=== PATIENT | female | born 1935 | race Caucasian/White ===

== ENCOUNTER 2021-02-10 10:45 | Emergency (ER) | payer MEDICARE ==
--- NOTE | 2021-02-10 10:53 | EDM.PDOC ---
ED HPI GENERAL MEDICAL PROBLEM - General Chief Complaint: Head Injury Stated Complaint: MEDICAL [facility] Time Seen by Provider: 02/10/21 10:47 Source of Information: Reports: Patient, EMS, Old Records, RN History Limitations: Reports: No Limitations - History of Present Illness INITIAL COMMENTS - FREE TEXT/NARRATIVE: 85 yo female with dementia was being moved with a Ronni lift and she accidentally got dropped and hit the back of her head. There was no LOC. Sent via EMT's for eval. Onset: Today, Sudden Onset Date: 02/10/21 Duration: Minutes: Location: Reports: Head Quality: Reports: Dull Severity: Mild Improves with: Reports: None Worsens with: Reports: None Context: Reports: Trauma Associated Symptoms: Reports: No Other Symptoms Treatments PROMOTION SPECIALIST: Reports: Other (see below) (none) ED ROS GENERAL - Review of Systems Review Of Systems: Unable To Obtain Reason Not Obtained: due to severe dementia Constitutional: Reports: No Symptoms ED EXAM, HEAD INJURY - Physical Exam Exam: See Below Exam Limited By: No Limitations General Appearance: Alert, WD/WN, No Apparent Distress Head: Normocephalic, Scalp Abrasions (nickel sized abrasion at the occiput). No: Scalp Hematoma, Active Bleeding, Adkins's Sign, Raccoon Eyes Nexus Criteria: No: Evidence of Intoxication, Altered Level of Consciousness, Focal Neurological Deficit Eyes: Bilateral Eye: Normal Inspection, PERRL Ears: Normal External Exam, Normal Canal, Hearing Grossly Normal, Normal TMs Nose: Normal Inspection, No Blood. No: Clear Rhinorrhea Throat/Mouth: Normal Inspection, Normal Lips, Normal Oropharynx, Normal Voice, No Airway Compromise. No: Normal Teeth (edentulous) Neck: Non-Tender, Full Range of Motion, Normal Inspection. No: Tenderness Respiratory: No Respiratory Distress, Lungs Clear, Normal Breath Sounds, No Accessory Muscle Use Cardiovascular: Regular Rate, Rhythm, No Edema GI/Abdominal Exam: Soft, Non-Tender Back Exam: Normal Inspection, Other. 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 No: Oriented x 3 Skin: Normal Color, Warm/Dry, Other (small scalp abrasion) - Rebekah Coma Score Best Eye Response ([place]): (4) Open Spontaneously Best Verbal Response (Rebekah): (4) Confused Conversation Best Motor Response ([place]): (6) Obeys Commands [place] Total: 14 (this is her baseline) Departure - Departure Time of Disposition: 11:00 Disposition: Home, Self-Care 01 Condition: Good Clinical Impression: Abrasion of occiput Qualifiers: Encounter type: initial encounter Qualified Code(s): S00.01XA - Abrasion of scalp, initial encounter - Discharge Information *PRESCRIPTION DRUG MONITORING PROGRAM REVIEWED*: Not Applicable *COPY OF PRESCRIPTION DRUG MONITORING REPORT IN PATIENT LORIE: Not Applicable Instructions: Abrasion, [id number] Referrals: PCP,None [Primary Care Provider] - Additional Instructions: Apply Bacitracin ointment to the scalp abrasion a couple times a day. Recheck for recurrent vomiting, unequal pupils, or decreased level of consciousness.
[2021-02-10] MEDS ORDERED: Bacitracin Oint 1 GM U/D Packet TOP ONE (10:56)
== END 2021-02-10 11:37 | disposition home or self-care (01) ==
LOC: JP.ED 10:45
DX: S00.01XA Abrasion of scalp, initial encounter (principal); F03.90 Unspecified dementia, unspecified severity, without behavioral disturbance, psychotic disturbance, mood disturbance, and anxiety; W20.8XXA Other cause of strike by thrown, projected or falling object, initial encounter
CPT/HCPCS: 99283

== ENCOUNTER 2023-07-10 04:57 | Inpatient (IN) | payer MEDICAID, MEDICARE ==
[2023-07-10] MEDS: HYDROmorphone 0.5 MG/0.5 ML Syringe IVPUSH ONE (05:10)
[2023-07-10] MEDS: Albuterol/Ipratropium 3.0-0.5 MG/3 ML Neb Soln NEB ONE (05:10)
[2023-07-10] MEDS: Sodium Chloride 0.9% 1,000 ML IV SCH ×2 (05:11→11:49)
[2023-07-10] MEDS: Sodium Chloride 0.9% 10 ML Syringe FLUSH PRN (05:11)
[2023-07-10] MEDS: cefTRIAXone 2 GM in Sodium Chloride 0.9% 50 ML IV ONE (05:19)
[2023-07-10] MEDS: LORazepam 2 MG/ML SDV IVPUSH ONE (05:33)
[2023-07-10 05:49] LABS: BASE EXCESS ARTERIAL 0.6 mm/L; BICARBONATE,ARTERIAL 25.4 mmol/L (22.0-26.0); CARBOXYHEMOGLOBIN 1.9 % (0.0-1.6); METHEMOGLOBIN 0.7 %; O2 SATURATION ARTERIAL 97.8 % (95.0-98.0); OXYHEMOGLOBIN 95.3 %; PCO2 ARTERIAL 43.9 mmHg (35.0-42.0); PO2 ARTERIAL 97.6 mmHg (75.0-100.0)
[2023-07-10 05:51] LABS: BASOPHILS PERCENT AUTO 0.2 % (0.1-1.3); HEMATOCRIT 34.2 % (34.3-46.0); HEMOGLOBIN 11.6 g/dL (11.2-15.5); IMMATURE GRAN ABSOLUTE AUTO 0.07 K/uL (0.00-0.23); IMMATURE GRAN PERCENT AUTO 0.8 % (0.0-0.7); LYMPHOCYTES ABSOLUTE AUTO 0.85 K/uL (0.8-3.3); LYMPHOCYTES PERCENT AUTO 9.7 % (11.4-47.7); MEAN CORPUSCULAR HEMOGLOBIN 31.4 pg (31.6-35.5); MEAN CORPUSCULAR HGB CONC 33.9 g/dL (31.6-35.5); MEAN CORPUSCULAR VOLUME 92.4 fL (81.4-99.0); MONOCYTES ABSOLUTE AUTO 0.49 K/uL (0.20-0.90); MONOCYTES PERCENT AUTO 5.6 % (3.3-12.6); NEUTROPHILS ABSOLUTE AUTO 7.35 K/uL (1.0-7.6); NEUTROPHILS PERCENT AUTO 83.7 % (40.0-78.1); PLATELET COUNT,PLT 151 K/uL (130-375); WHITE BLOOD CELL COUNT,WBC 8.8 K/uL (3.2-11.0)
[2023-07-10 06:08] LABS: CORONAVIRUS COVID-19 NAA NEGATIVE (NEGATIVE); INFLUENZA A NAA NEGATIVE (NEGATIVE); INFLUENZA B NAA NEGATIVE (NEGATIVE); RESPIRATORY SYNCYTIAL VIR NAA NEGATIVE (NEGATIVE)
[2023-07-10 06:14] LABS: BASOPHILS ABSOLUTE AUTO 0.02 K/uL (0.00-0.10)
[2023-07-10 06:17] LABS: A/G RATIO 0.7 (1.2-2.2); ALANINE AMINOTRANSFERASE,ALT 23 U/L (12-78); ALBUMIN 2.9 g/dL (3.4-5.0); ALKALINE PHOSPHATASE 44 U/L (46-116); ASPARTATE AMNIOTRANSFERASE,AST 22 U/L (15-37); BILIRUBIN TOTAL 0.3 mg/dL (0.2-1.0); BLOOD UREA NITROGEN,BUN 25 mg/dL (7-18); CALCIUM 9.1 mg/dL (8.5-10.1); CARBON DIOXIDE,CO2 27 mmol/L (21-32); CHLORIDE,CL 101 mmol/L (100-108); CREATININE 1.4 mg/dL (0.6-1.0); EST CRCL DRUG DOSING (CG) 23.52 mL/min; ESTIMATED GFR 36 mL/min (>60); GLUCOSE RANDOM 142 mg/dL (74-106); SODIUM,NA 138 mmol/L (140-148); TROPONIN I HIGH SENSITIVITY 54.1 pg/mL (<=60.3)
[2023-07-10 06:41] LABS: APPEARANCE,URINE SLIGHTLY CLOUDY (CLEAR); BILIRUBIN,URINE NEGATIVE (NEGATIVE); COLOR,URINE YELLOW (YELLOW); GLUCOSE,URINE NEGATIVE (NEGATIVE); KETONES,URINE NEGATIVE (NEGATIVE); LEUKOCYTE ESTERASE,URINE SMALL (NEGATIVE); NITRITE,URINE POSITIVE (NEGATIVE); OCCULT BLOOD,URINE MODERATE (NEGATIVE); PROTEIN,URINE 100 mg/dL (NEGATIVE); UROBILINOGEN,URINE 0.2 EU/dL (0.2-1.0)
[2023-07-10] MEDS: Furosemide 40 MG/4 ML VIAL IVPUSH ONE (06:43)
[2023-07-10 06:50] LABS: BACTERIA,URINE MANY; EPITHELIAL CELLS,URINE MODERATE; WBC,URINE >100 (0-5)
[2023-07-10 06:51] LABS: AMORPHOUS SEDIMENT,URINE NOT SEEN; MUCUS,URINE NOT SEEN
[2023-07-10] MEDS: Sodium Chloride 0.9% 10 ML Syringe FLUSH ONE (06:55)
[2023-07-10] MEDS: Iopamidol 612 MG/ML 100 ML Bottle IV PRN (06:55)
[2023-07-10] MEDS: Sodium Chloride 0.9% 80 ML IV SCH (06:55)
[2023-07-10] MEDS ORDERED: Ondansetron 4 MG Tab.DIS PO PRN (11:32)
[2023-07-10] MEDS ORDERED: Magnesium Hydroxide 400 MG/5 ML Susp 30 ML Cup PO PRN (11:32)
[2023-07-10] MEDS ORDERED: Sennosides/Docusate Sodium 50-8.6 MG Tab PO PRN (11:32)
[2023-07-10] MEDS ORDERED: Acetaminophen 325 MG Tab PO PRN (11:32)
[2023-07-10] MEDS ORDERED: Ondansetron 4 MG/2 ML SDV IV PRN (11:32)
[2023-07-10] MEDS: Doxycycline 100 MG in Sodium Chloride 0.9% 100 ML IV SCH (12:41)
[2023-07-10] MEDS: Albuterol 0.083% 2.5 MG/3 ML Neb Soln NEB PRN (12:45)
[2023-07-10] MEDS: LORazepam 0.5 MG Tab PO PRN (14:15)
[2023-07-10] MEDS: Albuterol/Ipratropium 3.0-0.5 MG/3 ML Neb Soln NEB SCH (14:36)
[2023-07-10] MEDS: LORazepam 0.5 MG Tab PO SCH (20:31)
[2023-07-10] MEDS: Melatonin 3 MG Tab PO SCH (20:31)
[2023-07-10] MEDS: Lactobacillus Rhamnosus GG (Probiotic) Cap PO SCH (20:31)
[2023-07-10] MEDS: Donepezil 10 MG Tab PO SCH (20:31)
[2023-07-10] MEDS: Metoprolol Tartrate 50 MG Tab PO SCH (20:34)
[2023-07-10] MEDS: Budesonide 0.5 MG/2 ML Neb Susp NEB SCH (20:44)
[2023-07-11 05:08] LABS: HEMATOCRIT 31.4 % (34.3-46.0); HEMOGLOBIN 10.4 g/dL (11.2-15.5); MEAN CORPUSCULAR HEMOGLOBIN 31.3 pg (31.6-35.5); MEAN CORPUSCULAR HGB CONC 33.1 g/dL (31.6-35.5); MEAN CORPUSCULAR VOLUME 94.6 fL (81.4-99.0); RED BLOOD CELL COUNT 3.32 M/uL (3.77-5.24); WHITE BLOOD CELL COUNT,WBC 11.2 K/uL (3.2-11.0)
[2023-07-11 05:22] LABS: ANION GAP 10.2 mmol/L (5.0-14.0); CALCIUM 8.6 mg/dL (8.5-10.1); CREATININE 1.6 mg/dL (0.6-1.0); EST CRCL DRUG DOSING (CG) 20.58 mL/min; MAGNESIUM 1.8 mg/dL (1.8-2.4); POTASSIUM,K 4.1 mmol/L (3.6-5.2)
[2023-07-11] MEDS: Loratadine 10 MG Tab PO SCH (08:33)
[2023-07-11] MEDS: Sertraline 50 MG Tab PO SCH (08:33)
[2023-07-11] MEDS: predniSONE 5 MG Tab PO SCH (08:34)
[2023-07-11] MEDS: cefTRIAXone 1 GM in Sodium Chloride 0.9% 50 ML IV SCH (10:54)
[2023-07-11] MEDS: Morphine 10 MG/0.5 ML Oral Syringe PO PRN (12:12)
[2023-07-11] MEDS: LORazepam ORAL Concentrate 1MG/0.5ML U/D PO PRN (12:12)
[2023-07-11] MEDS: methylPREDNISolone Sodium Succinate 125 MG/2 ML SDV IVPUSH ONE (12:13)
[2023-07-11] MEDS: Sodium Chloride 0.9% 1,000 ML IV SCH (19:48)
[2023-07-11] MEDS: methylPREDNISolone Sodium Succinate 125 MG/2 ML SDV IVPUSH SCH (19:49)
[2023-07-12 05:02] LABS: C-REACTIVE PROTEIN 4.29 mg/dL (<0.50); CALCIUM 8.9 mg/dL (8.5-10.1); CREATININE 1.4 mg/dL (0.6-1.0); EST CRCL DRUG DOSING (CG) 23.52 mL/min; POTASSIUM,K 3.8 mmol/L (3.6-5.2)
[2023-07-12 05:08] LABS: ANION GAP 14.8 mmol/L (5.0-14.0)
[2023-07-12 07:31] LABS: HEMATOCRIT 32.1 % (34.3-46.0); HEMOGLOBIN 10.7 g/dL (11.2-15.5); MEAN CORPUSCULAR HEMOGLOBIN 31.3 pg (31.6-35.5); MEAN CORPUSCULAR HGB CONC 33.3 g/dL (31.6-35.5); MEAN CORPUSCULAR VOLUME 93.9 fL (81.4-99.0); RED BLOOD CELL COUNT 3.42 M/uL (3.77-5.24); WHITE BLOOD CELL COUNT,WBC 8.6 K/uL (3.2-11.0)
[2023-07-13 04:48] LABS: BASOPHILS PERCENT AUTO 0.1 % (0.1-1.3); HEMATOCRIT 33.5 % (34.3-46.0); IMMATURE GRAN ABSOLUTE AUTO 0.17 K/uL (0.00-0.23); IMMATURE GRAN PERCENT AUTO 2.2 % (0.0-0.7); LYMPHOCYTES ABSOLUTE AUTO 0.47 K/uL (0.8-3.3); LYMPHOCYTES PERCENT AUTO 6.1 % (11.4-47.7); MEAN CORPUSCULAR HEMOGLOBIN 30.9 pg (31.6-35.5); MEAN CORPUSCULAR HGB CONC 32.8 g/dL (31.6-35.5); MEAN CORPUSCULAR VOLUME 94.1 fL (81.4-99.0); MONOCYTES ABSOLUTE AUTO 0.24 K/uL (0.20-0.90); MONOCYTES PERCENT AUTO 3.1 % (3.3-12.6); NEUTROPHILS ABSOLUTE AUTO 6.86 K/uL (1.0-7.6); NEUTROPHILS PERCENT AUTO 88.5 % (40.0-78.1); PLATELET COUNT,PLT 155 K/uL (130-375); RED BLOOD CELL COUNT 3.56 M/uL (3.77-5.24); WHITE BLOOD CELL COUNT,WBC 7.8 K/uL (3.2-11.0)
[2023-07-13 05:05] LABS: BASOPHILS ABSOLUTE AUTO 0.01 K/uL (0.00-0.10)
[2023-07-13 05:09] LABS: ANION GAP 13.8 mmol/L (5.0-14.0); CALCIUM 9.1 mg/dL (8.5-10.1); CREATININE 1.3 mg/dL (0.6-1.0); EST CRCL DRUG DOSING (CG) 25.33 mL/min; POTASSIUM,K 3.8 mmol/L (3.6-5.2)
[2023-07-13] MEDS: Morphine 10 MG/0.5 ML Oral Syringe PO PRN (13:25)
[2023-07-13] MEDS: LORazepam ORAL Concentrate 1MG/0.5ML U/D PO PRN (13:25)
[2023-07-13] MEDS ORDERED: Atropine Sulfate 1% Ophth 2 ML Drops SL PRN (14:31)
[2023-07-13] MEDS: Atropine Sulfate 1% Ophth 2 ML Drops SL PRN (14:40)
[2023-07-16] MEDS: LORazepam ORAL Concentrate 1MG/0.5ML U/D PO PRN (21:31)
[2023-07-16] MEDS: Morphine 10 MG/0.5 ML Oral Syringe PO PRN (23:09)
[2023-07-17] MEDS: Bisacodyl 10 MG Supp RECTAL PRN (01:41)
== END 2023-07-17 20:36 | disposition expired | DRG 193 ==
LOC: JP.ED 04:57 → JP.MS 10:29
PROVIDERS: ADMIT Internal Medicine; ATTEND Hospitalist
PROC: 5A09357 Assistance with Respiratory Ventilation, Less than 24 Consecutive Hours, Continuous Positive Airway Pressure (ICD-10-PCS; principal; 2023-07-10)
PROC: 4A033R1 Measurement of Arterial Saturation, Peripheral, Percutaneous Approach (ICD-10-PCS; 2023-07-10)
DX: A41.9 Sepsis, unspecified organism (principal); J18.9 Pneumonia, unspecified organism; J96.01 Acute respiratory failure with hypoxia; Z88.2 Allergy status to sulfonamides; N17.9 Acute kidney failure, unspecified; N30.00 Acute cystitis without hematuria; Z88.6 Allergy status to analgesic agent; F02.C18 Dementia in other diseases classified elsewhere, severe, with other behavioral disturbance; F02.C4 Dementia in other diseases classified elsewhere, severe, with anxiety; Z66 Do not resuscitate; Z51.5 Encounter for palliative care; F02.C0 Dementia in other diseases classified elsewhere, severe, without behavioral disturbance, psychotic disturbance, mood disturbance, and anxiety; I10 Essential (primary) hypertension; K21.9 Gastro-esophageal reflux disease without esophagitis; M19.90 Unspecified osteoarthritis, unspecified site; G30.9 Alzheimer's disease, unspecified; Z88.5 Allergy status to narcotic agent; Z88.0 Allergy status to penicillin; Z88.8 Allergy status to other drugs, medicaments and biological substances; Z79.51 Long term (current) use of inhaled steroids; Z79.899 Other long term (current) drug therapy; Z87.820 Personal history of traumatic brain injury
CPT/HCPCS: 0241U; 36415; 36600; 71045; 71045-26; 71260; 74018; 74018-26; 74177; 80048; 80053; 81001; 82803; 83605; 83735; 83880; 84145; 84484; 85025; 85027; 86140; 87040; 87086; 87088; 87186; 93005; 93010; 94640; 94660; 96365; 96375; 99223; 99233; 99238; 99285; 99285-25; A9270-GY; C1758; J0696; J1170; J1940; J2060; J2919; J2930; J3490; J7030; J7512; J7620; Q9967